=== PATIENT | male | born 1975 | race Caucasian/White ===

== ENCOUNTER 2021-09-07 15:51 | Emergency (ER) | payer BC, SELFPAY ==
--- NOTE | ~2021-09-07 | XR_ITS ---
EXAMINATION: [id number] EXAM DATE: 09/07/2021 16:22 INDICATION: Initial encounter following injury, with pain of the right ribs. TECHNIQUE: Frontal projection of the upper right ribs, frontal projection of the lower right ribs, ob lique projection of the right ribs, frontal chest x-ray(s) for interpretation. There is no prior [place] dy for comparison. FINDINGS: Suspicion of right 7th rib fracture anteriorly identified on the oblique projection. This f inding has been indicated, marked on the examination for review, clinical correlation. No other suzie picious findings. No confluent consolidation, pneumothorax or pleural effusion suspected. Cardiomedia stinal silhouette is normal. IMPRESSION: Probable acute nondisplaced right 7th rib fracture. Reviewed, dictated and finalized at location B.
[2021-09-07 16:02] VITALS: BP 125/75; PULSE 82; RESP 16; TEMP 37.3; O2SAT 97
--- NOTE | 2021-09-07 16:37 | ED.GENADULT ---
HPI - General Adult General Chief complaint: Unspecified Stated complaint: rib injury Time Seen by Provider: 09/07/21 16:38 Source: patient Mode of arrival: ambulatory Limitations: no limitations History of Present Illness HPI narrative: 46-year-old male presents with concern for right rib pain. 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 He reports pain worse in the last 2 days. Reports pain worsens when he moves in certain ways, takes deep breaths or coughs. He denies any shortness of breath. Denies bruising, open skin. complaint: Rib pain Related Data Home Medications Medication Instructions Recorded Confirmed No Home Medications 09/07/21 09/07/21 Allergies Allergy/AdvReac Type Severity Reaction Status Date / Time No Known Allergies Allergy Verified 09/07/21 16:07 Review of Systems Review of Systems: CONSTITUTIONAL: Denies malaise, chills, sweats, or fever CARDIOVASCULAR: Denies chest pain, palpitations, or edema. RESPIRATORY: Denies cough or dyspnea. GASTROINTESTINAL: Denies abdominal pain SKIN: Denies bruising, open skin MUSCULOSKELETAL: Reports right rib pain NEUROLOGIC: Denies numbness, weakness All systems reviewed & are unremarkable except as noted in HPI and below PMFSH Comments At time of signature, agree with nursing past medical, surgical, social and family history. There is no relevant family history pertinent to the presenting complaint Exam Narrative: GENERAL: Well-appearing, well-nourished, and in no acute distress. HEAD: Normocephalic, atraumatic. EYES: PERRLA, sclera clear ENT: Mucous membranes moist. NECK: Supple. CHEST: No respiratory distress. Clear to auscultation. No bony deformities, no asymmetry. Speaks in full sentences. HEART: Regular rate and rhythm. EXTREMITIES: Right upper extremity has grossly normal range of motion, normal strength and sensation. SKIN: Warm, dry, no visible rash, lacerations, abrasions, bruising. NEURO: Alert and oriented x3. PSYCH: Normal mood and affect Course Course Emergency Course: Patient is aware of diagnosis, understands and agrees to treatment plan. Anticipatory guidance given. Patient agrees to follow-up as directed and is aware of reasons to seek care at the emergency department. Portions of this record may have been created with voice recognition software Level of Care: Express Care Visit Vital Signs Vital signs: Vital Signs Temperature 99.1 F 09/07/21 16:02 Pulse Rate 82 09/07/21 16:02 Respiratory Rate 16 09/07/21 16:02 Blood Pressure 125/75 09/07/21 16:02 Pulse Oximetry 97 09/07/21 16:02 Temperature 99.1 F 09/07/21 16:02 Pulse Rate 82 09/07/21 16:02 Respiratory Rate 16 09/07/21 16:02 Blood Pressure 125/75 09/07/21 16:02 Pulse Oximetry 97 09/07/21 16:02 Reviewed. Medical Decision Making MDM Narrative Medical decision making narrative: Exam findings and imaging show no acute concerns or changes; patient is non-toxic appearing and is in no distress. Patient is appropriate for outpatient treatment and follow-up. Vital Signs Vital Signs: Vital Signs Temperature 99.1 F 09/07/21 16:02 Pulse Rate 82 09/07/21 16:02 Respiratory Rate 16 09/07/21 16:02 Blood Pressure 125/75 09/07/21 16:02 Pulse Oximetry 97 09/07/21 16:02 Temperature 99.1 F 09/07/21 16:02 Pulse Rate 82 09/07/21 16:02 Respiratory Rate 16 09/07/21 16:02 Blood Pressure 125/75 09/07/21 16:02 Pulse Oximetry 97 09/07/21 16:02 Critical Care Time Critical Care Time Critical Care Time: No Discharge Plan Discharge Clinical Impression: Fracture of rib Qualifiers: Encounter type: initial encounter Rib fracture type: single rib Fracture type: closed Laterality: right Qualified Code(s): S22.31XA - Fracture of one rib, right side, initial encounter for closed fracture Patient Disposition: Home, Self-Care Condition: Stable I
== END 2021-09-07 16:59 | disposition home or self-care (01) ==
PROVIDERS: Emergency Provider Nurse Practitioner; PCP Internal Medicine
DX: R07.81 Pleurodynia (principal); S22.31XA Fracture of one rib, right side, initial encounter for closed fracture; W20.8XXA Other cause of strike by thrown, projected or falling object, initial encounter
CPT/HCPCS: 71101; 99203; G0463

== ENCOUNTER 2024-07-11 13:49 | Emergency (ER) | payer BC, SELFPAY ==
[2024-07-11 13:56] VITALS: BP 130/71; PULSE 77; RESP 14; TEMP 36.9; O2SAT 100
--- NOTE | 2024-07-11 14:04 | ED.EYEPROB ---
HPI - Eye Problem General Chief complaint: Eye Problems Stated complaint: Eyes Time Seen by Provider: 07/11/24 14:05 Source: patient Mode of arrival: ambulatory Limitations: no limitations History of Present Illness HPI Narrative: 48 y/o male presented for c/o red itchy painful eyes. Says left eye is worse and started 4 days ago. Now spreading to right eye for 2 days. Endorses sand/gritty feeling in the eyes, and mucous to the lids in the morning. Denies injury or known FB. Using eye wash and cold water. denies photophobia, vision changes, headache, dizziness, n/v. smokes 1ppd chief complaint: eye pain Related Data Home Medications ?Medication ?Instructions ?Recorded ?Confirmed ?Last Taken ?Type No Home Medications 09/07/21 07/11/24 Unknown History Allergies Allergy/AdvReac Type Severity Reaction Status Date / Time No Known Allergies Allergy Verified 07/11/24 14:07 Review of Systems Review of Systems: CONSTITUTIONAL: Denies body aches, fever, chills EYES:Endorses redness, itching FB sensation to eyes Denies pain visual changes photophobia ENT: Denies rhinorrhea, congestion, sore throat, or otalgia. CARDIOVASCULAR: Denies chest pain, palpitations RESPIRATORY: Denies cough or dyspnea. GASTROINTESTINAL: Denies abdominal pain, nausea, vomiting, or diarrhea. SKIN: Denies rash, itching, or wounds. MUSCULOSKELETAL: Denies back pain, joint pain, or myalgia. NEUROLOGIC: Denies headache, numbness, tingling, or weakness. All systems reviewed & are unremarkable except as noted in HPI and below PMFSH Comments At time of signature, I have reviewed and agree with nursing past medical, surgical, social and family history unless otherwise noted. Please see nursing chart for further information. There is no relevant family history pertinent to the presenting complaint Exam Narrative: GENERAL: Well-appearing HEAD: Normocephalic, atraumatic. EYES: bilateral conjunctival injection, Left >right. No active purulent drainage. No eye lid swelling. PERRLA, EOMI. Lid eversion shows no FB. ENT: Mucous membranes pink and moist. No rhinorrhea. TMs normal bilaterally. Throat normal. Uvula midline. CHEST: Clear to auscultation. SKIN: Warm, dry, no rash. Normal skin turgor. NEURO: No focal deficits. Alert and oriented x3 PSYCH: Normal affect. Course Course Emergency Course: Patient is aware of diagnosis, understands and agrees to treatment plan. Anticipatory guidance given. Patient agrees to follow-up as directed and is aware of reasons to seek care at the emergency department. Portions of this record may have been created with voice recognition software Level of Care: Express Care Visit MDM - Eye Problem MDM Narrative Medical decision making narrative: Discussed physical exam findings c/w conjunctivitis. He declined Iniguez lamp exam. Advised supportive measures and signs/symptoms to go to the ER. Pt is appropriate for outpt treatment and f/u. Differential Diagnosis Differential diagnosis: Likely corneal abrasion, conjunctivitis, acute iritis and corneal ulcer Discharge Plan Discharge Clinical Impression: Bacterial conjunctivitis Patient Disposition: Home, Self-Care Condition: Stable Instructions: Antibiotic Form, Conjunctivitis (ED) Additional Instructions: Avoid touching or rubbing your eye. Use over the counter lubricating eye drops as needed for irritation Use a warm or cool washcloth on your eye for comfort Use eyedrops as directed - you are contagious for 24 hours after starting the antibiotic Practice good handwashing and hygiene to prevent spread of infection You may take Tylenol or ibuprofen for pain Follow-up with PCP or stress analyst if condition is not improving in 2 days. Go to the emergency room if you have severe pain or pressure behind your eye, difficulty seeing, or other severe symptoms [facility] [phone] [facility] [phone] [facility] [phone] [facility] [phone] Patient Language: Divehi Prescriptions: New polymyxin B sulf-trimethoprim 10,000 unit- 1 mg/mL drops 1 drp EACH EYE Q3H 7 Days Qty: 10 0RF Rx Instructions: while awake; do not exceed 6 doses in 24 hours No Action No Home Medications hydrocodone-acetaminophen 5-325 mg tablet 1 tablet PO Q6H PRN (Reason: pain) Qty: 20 0RF Follow-up/Referrals: PHYSICIAN,SECURITY DOOR INSTALLER [Primary Care Provider] -
--- OUTSIDE RECORDS SUMMARY | 2024-07-11 14:32 | XMS_ITS | Referral Summary ---
Author Organization [facility] [employer] Address [address] [place] [address] Care Team Providers Care Sales Agent [employer] Insurance Name Role Phone Unavailable Primary Care Provider Unavailabl e Source Comments [facility] [employer],non-owned Affiliates and Associated Physician Practices is amultiple site organization consisting of ambulatory clinics and hospital sitesin [place], [place], [place] and [place]. This disclosure is being madepursuant to the Care Everywhere program and may not contain all information available regarding this patient. Last updated 18.[facility] [employer] Allergies No known active allergies Medications * Be aware that medications may not be up to date on this document. Alwaysverify current medications with the patient. Medication Sig Dispensed Refills Start Date End Date Status acetaminophen (TYLENOL) 325 MG tablet Take 2 tablets by mouth every 4 hours as needed Maximum allowable Acetaminophen amount = 4 Grams (4000 mg) / 24 hours. 02/22/2019 Active docusate sodium (COLACE) 100 MG capsule Take 1 capsule by mouth once daily 30 capsule 02/23/2019 Active ondansetron, disintegrating, (ZOFRAN ODT) 4 MG tablet Take 1 tablet by mouth every 6 hours as needed for Nausea/Vomiting Allow tablet to dissolve on the tongue 20 tablet 02/22/2019 Active oxyCODONE-acetami nophen (PERCOCET) 10-325 MG tablet Take 1 tablet by mouth every 8 hours as needed 12 tablet 02/22/2019 Active Active Problems Problem Noted Date Diagnosed Date SBO (small bowel obstruction) 02/18/2019 Social History Tobacco Use Types Packs/Day Years Used Date Smoking Tobacco: Every Day Cigarettes 1 25.1 Started: 06/12/1999 Smokeless Tobacco: Never Tobacco Cessation:Ready to Q uit: No Alcohol Use Standard Drinks/Week Comments Yes 1 (1 standard drink = 0.6 oz pur e alcohol) AUDIT-C Answer Date Recorded Frequency of Alcohol Consumption Monthly or less 02/19/2019 Average Number of Drinks 1 or 2 019 Frequency of Binge Drinking Less than monthly Sex and Gender Information Value Date Recorded Sex Assigned at Not on file Gender Identity Not on file Sexual Orientation Not on file Last Filed Vital Signs Vital Sign Reading Time Taken Comments Blood Pressure 102/69 02/22/2019 4:27 AM CDT Pulse 75 02/22/2019 4:27 AM CDT Temperature 36.7 ??C (98 ??F) 02/22/2019 4:27 AM CDT Respiratory Rate 16 02/22/2019 4:27 AM CDT Oxygen Saturation 97% 02/22/2019 4:27 AM CDT Inhaled Oxygen Concentration - - Weight 69.8 kg (153 lb 14.4 oz) 02/18/2019 7:50 PM CDT Height 182.9 cm (6') 02/18/2019 7:50 PM CDT Body Mass Index 20.87 02/18/2019 7:50 PM CDT Functional Status Functional Status Response Date of Assess ment Is person deaf or have serious hearing difficult y? No 02/18/2019 Is person blind or have serious difficulty seein g? No 02/18/2019 Does person have serious dif ficulty walking/climbing stairs? No 02/18/2019 Does person have difficulty dressing/bathing? No 02/18/2019 Does person have difficulty doing errands alone? No 02/18/2019 Cognitive Status Response Date of Assessm ent Does person have difficulty concentrating/remembering/making decisions? No 02/18/2019 Plan of Treatment Not on file Advance Directives * Full Code (Latest Code Status on File) Date Activated Date Inactivated Comments 02/18/2019 9:09 PM 02/22/2019 1:57 PM
--- OUTSIDE RECORDS SUMMARY | 2024-07-11 14:32 | XMS_ITS | Patient Health Summary ---
Author Organization [facility] [employer] Address [address] [place] [address] Care Team Providers Care Geophysical E Logger Name Role Phone Unavailable Primary Care Provider Unavailabl e Note from [facility] [employer] [facility],non-owned Affiliates and Associated Physician Practices is amultiple site organization consisting of ambulatory clinics and hospital sitesin [place], [place], [place] and [place]. This disclosure is being madepursuant to the Care Everywhere program and may not contain all information available regarding this patient. Last updated 18.[facility] [employer] Allergies No known active allergies Medications * Be aware that medications may not be up to date on this document. Alwaysverify current medications with the patient. * acetaminophen (TYLENOL) 325 MG tablet(Started 02/22/2019) Take 2 tablets by mouth every 4 hours as needed Maximum allowable Acetaminophen amount = 4 Grams (4000 mg) / 24 hours. * docusate sodium (COLACE) 100 MG capsule(Started 02/23/2019) Take 1 capsule by mouth once daily * ondansetron, disintegrating, (ZOFRAN ODT) 4 MG tablet(Started 02/22/2019) Take 1 tablet by mouth every 6 hours as needed for Nausea/Vomiting Allow tablet to dissolve on the tongue * oxyCODONE-acetaminophen (PERCOCET) 10-325 MG tablet(Started 02/22/2019) Take 1 tablet by mouth every 8 hours as needed Active Problems Problem Noted Date Diagnosed Date [...] Mass Index 20.87 02/18/2019 7:50 PM CDT Procedures * CARDIAC RHYTHM STRIP ORDER(Performed 02/26/2019) * COMPREHENSIVE METABOLIC PANEL(Performed 02/21/2019) * CBC W AUTO DIFFERENTIAL(Performed 02/21/2019) * GLUCOSE - POINT OF CARE(Performed 02/20/2019) * COMPREHENSIVE METABOLIC PANEL(Performed 02/20/2019) * CBC W AUTO DIFFERENTIAL(Performed 02/20/2019) * PT EVAL AND TREAT(Performed 02/19/2019) * OT EVAL AND TREAT(Performed 02/19/2019) * COMPREHENSIVE METABOLIC PANEL(Performed 02/19/2019) * CBC W AUTO DIFFERENTIAL(Performed 02/19/2019) * XR ABDOMEN KUB(Performed 02/18/2019) Performed for SBO (small bowel obstruction) (HCC) Results * CARDIAC RHYTHM STRIP ORDER (02/26/2019 6:30 PM CDT) Narrative 02/26/2019 6:30 PM CDT Ordered by an unspecified provider. Scanned Document CARDIAC SERVICES ORD ERABLES * (ABNORMAL) CBC W AUTO DIFFERENTIAL (02/21/2019 4:44 AM CDT) Only the most recent of3 resultswithin the time period is included. [facility] WBC 7.8 4.4 - 10.7 x10E9/L 02/21/2019 5:16 AM CDT [facility] WBC Corrected 02/21/2019 5:16 AM CDT [facility] RBC 3.82 3.80 - 5.40 x10E12/L 02/21/2019 5:16 AM CDT [facility] Hemoglobin 12.8 12.0 - 17.6 gm/dL 02/21/2019 5:16 AM CDT [facility] Hematocrit 37.4 35.2 - 51.7 % 02/21/2019 5:16 AM CDT [facility] MCV 97.9 80.7 - 98.3 fl 02/21/2019 5:16 AM CDT [facility] MCH 33.5 26.7 - 34.0 pg 02/21/2019 5:16 AM CDT [facility] MCHC 34.2 30.8 - 35.9 gm/dL 02/21/2019 5:16 AM CDT [facility] Platelet Count 372 153 - 416 x10E9/L 02/21/2019 5:16 AM CDT [facility] RDW-CV 11.7(L) 12.1 - 14.9 % 02/21/2019 5:16 AM CDT [facility] MPV 9.7 9.4 - 12.9 fl 02/21/2019 5:16 AM CDT [facility] Neutrophils % 69.1 44.0 - 73.0 % 02/21/2019 5:16 AM CDT [facility] Lymphocytes % 18.9(L) 20.0 - 43.0 % 02/21/2019 5:16 AM CDT [facility] Monocytes % 9.2 5.0 - 13.0 % 02/21/2019 5:16 AM CDT [facility] Eosinophils % 2.0 0.0 - 6.0 % 02/21/2019 5:16 AM CDT [facility] Basophils % 0.4 0.0 - 2.0 % 02/21/2019 5:16 AM CDT [facility] Immature Granulocytes 0.4 0 - 1 % 02/21/2019 5:16 AM CDT [facility] Neutrophil Absolute 5.42 2.01 - 7.14 x10E9/L 02/21/2019 5:16 AM CDT [facility] Lymphocytes Absolute 1.48 1.07 - 3.94 x10E9/L 02/21/2019 5:16 AM CDT [facility] Monocytes Absolute 0.72 0.26 - 1.07 x10E9/L 02/21/2019 5:16 AM CDT [facility] Eosinophils Absolute 0.16 0 - 0.47 x10E9/L 02/21/2019 5:16 AM CDT [facility] Basophils Absolute 0.03 0 - 0.08 x10E9/L 02/21/2019 5:16 AM CDT [facility] Immature Granulocytes Absolute 0.03 0.00 - 0.06 x10E9/L 02/21/2019 5:16 AM CDT [facility] nRBC Auto 0 /100 WBC 02/21/2019 5:16 AM CDT [facility] Blood BLOOD SPECIMEN / Unknown Lab Venipuncture / Unknown 02/21/2019 4:44 AM CDT 02/21/2019 5:03 AM CDT Sherly Leavitt MD LAB - HEMATOLOGY OR DERABLES [facility] [address] [place] [address] * (ABNORMAL) COMPREHENSIVE METABOLIC PANEL (02/21/2019 4:44 AM CDT) Only the most recent of3 resultswithin the time period is included. Glucose 152(H) 74 - 106 mg/dL 02/21/2019 5:30 AM CDT [facility] Sodium 137 136 - 145 mmol/L 02/21/2019 5:30 AM CDT [facility] Potassium 4.1 3.5 - 5.1 mmol/L 02/21/2019 5:30 AM CDT [facility] Chloride 102 98 - 107 mmol/L 02/21/2019 5:30 AM CDT [facility] CO2 28 23 - 31 mmol/L 02/21/2019 5:30 AM CDT [facility] Calcium 8.5 8.4 - 10.2 mg/dL 02/21/2019 5:30 AM CDT [facility] Anion Gap 7(L) 8 - 16 mmol/L 02/21/2019 5:30 AM CDT [facility] BUN 8(L) 8.9 - 20.6 mg/dL 02/21/2019 5:30 AM CDT [facility] Creatinine 0.73 0.73 - 1.18 mg/dL 02/21/2019 5:30 AM CDT [facility] Alkaline Phosphatase 32(L) 40 - 150 U/L 02/21/2019 5:30 AM CDT [facility] ALT 37 13 - 61 U/L 02/21/2019 5:30 AM CDT [facility] AST 23 5 - 34 U/L 02/21/2019 5:30 AM T [facility] Protein Total 6.4 6.4 - 8.3 gm/dL 02/21/2019 5:30 AM CDT [facility] Albumin 3.6 3.5 - 5.2 gm/dL 02/21/2019 5:30 AM T [facility] Bilirubin Total 0.3 0.2 - 1.2 mg/dL 02/21/2019 5:30 AM T [facility] eGFR by MDRD >60 >60 mL/min/1.7 3m2 02/21/2019 5:30 AM T [facility] eGFR by MDRD >60 >60 mL/min/1.7 3m2 02/21/2019 5:30 AM CDT [facility] Blood BLOOD SPECIMEN / Unknown Lab Venipuncture / Unknown 02/21/2019 4:44 AM CDT 02/21/2019 5:03 AM CDT Sherly Leavitt MD LAB - CHEMISTRY ORD ERABLES [facility] [address] [place] [address] * GLUCOSE - POINT OF CARE (02/20/2019 6:54 AM CDT) Glucose WB/POC 78 70 - 106 mg/dL 02/20/2019 8:03 AM CDT [facility] Specimen Type Arterial/C apillary 02/20/2019 8:03 AM CDT [facility] Blood BLOOD SPECIMEN / Unknown 02/20/2019 6:54 AM CDT 02/20/2019 8:03 AM CDT Sherly Leavitt MD LAB - POINT OF CARE ORDERABLES [facility] [address] [place], [place] [id number] * XR ABDOMEN KUB (02/18/2019 8:52 PM CDT) Anatomical Region Laterality Modality Abdomen Radiographic Katharine ging 02/18/2019 8:53 PM CDT Narrative 02/18/2019 8:54 PM CDT KUB at 2035 hours HISTORY: Nasogastric tube placement A nasogastric tube superimposes the stomach. Multiple distended small bowel loops are present disproportionate to colonic size. There is contrast within the colon possibly due to prior CT or barium study. Reading Radiologist: Dimitri Ceballos MD on 02/18/2019 at 8:54 PM Procedure Note Dimitri Ceballos MD - 02/18/2019 KUB at 2035 hours HISTORY: Nasogastric tube placement A nasogastric tube superimposes the stomach. Multiple distended small bowel loops are present disproportionate to colonic size. There is contrast within the colon possibly due to prior CT or barium study. Reading Radiologist: Dimitri Ceballos MD on 02/18/2019 at 8:54 PM Mary Rosario APRN-BUSINESS BANKING SALES ASSISTANT DIAGNOSTIC IMAGING ORDERABLES
--- OUTSIDE RECORDS SUMMARY | 2024-07-11 14:32 | XMS_ITS | Clinical Summary ---
Author Organization [facility] [employer] Address [facility] [place] [address] Care Team Providers Care Director Telehealth Name Role Phone Unavailable Primary Care Provider Unavailabl e Source Comments [facility] [employer]non-owned Affiliates and Associated Physician Practices is amultiple site organization consisting of ambulatory clinics and hospital sitesin [place], [place], [place] and [place]. This disclosure is being madepursuant to the Care Everywhere program and may not contain all information available regarding this patient. Last updated 18.[facility] [employer] Allergies No known active allergies Medications * [...] Mass Index 20.87 02/18/2019 7:50 PM CDT Plan of Treatment Health Maintenance Due Date Last Done Comments COLOGUARD (AGES 45-75) - COL ON CA SCREENING 1975 COLON MONITORING 1975 COLONOSCOPY - COLON CA SCREENING 1975 CT COLONOGRAPHY - COLON CA SCREENING 1975 Colorectal Cancer Screening 1975 FIT - COLON CA SCREENING 1975 FLEX SIG - COLON CA SCREENING 1975 LIPID TESTING 1975 HIV SCREENING 1990 HEPATITIS C SCREENING 07/20/1993 DTAP/TDAP/TD VACCINES (1 - Tdap) 1994 HEPATITIS B VACCINE (1 of 3 - 19+ 3-dose series) 1994 PNEUMOCOCCAL VACCINE (1 of 2 - PCV) 1994 COVID-19 VACCINE ( - 2023-2 5 season) 2024 INFLUENZA VACCINE (#1) 2024 DEPRESSION SCREENING 06/12/2024 ZOSTER VACCINE (1 of 2) 2025 HIB VACCINE Aged Out No longer eligi ble based on patient's age to complete this topic HPV VACCINE Aged Out No longer eligi ble based on patient's age to complete this topic MENINGOCOCCAL (Group B) VACCINE Aged Out No longer eligible based on patient's age to complete this topic MENINGOCOCCAL VACCINE Aged Out No jasson hernando eligible based on patient's age to complete this topic Advance Directives * Full Code (Latest Code Status on File) Date Activated Date Inactivated Comments 02/18/2019 9:09 PM 02/22/2019 1:57 PM
--- OUTSIDE RECORDS SUMMARY | 2024-07-11 14:32 | XMS_ITS | Clinical Summary ---
Author Organization [facility] Address [address] [place] [address] Phone Care Team Providers Care Sales Clerk Name Role Phone Unavailable Primary Care Provider Unavailabl e Allergies No known active allergies Medications acetaminophen (TYLENOL) 325 MG Tablet Take 650 mg by mouth. 02/22/2019 Active ciprofloxacin (CIPRO) 500 MG Tablet TAKE 1 TABLET BY MOUTH TWICE DAILY FOR 5 DAYS 0 02/22/2019 Active docusate sodium (COLACE) 100 MG Capsule Take 100 mg by mouth. 02/23/2019 Active metroNIDAZOLE (FLAGYL) 500 MG Tablet TAKE 1 TABLET BY MOUTH EVERY 8 HOURS FOR 5 DAYS 0 02/22/2019 Active ondansetron (ZOFRAN-ODT) 4 MG TABLET DISPERSIBLE Take 4 mg by mouth. 02/22/2019 Active oxyCODONE-Acetam inophen (PERCOCET) 10-325 MG Tablet Take 1 Tab by mouth. 02/22/2019 Active Active Problems Problem Noted Date Diagnosed Date Small bowel obstruction 02/18/2019 Hypokalemia 02/18/2019 Tobacco dependence 02/18/2019 Substance abuse 02/18/2019 Immunizations Immunization Administration Dates Next Due Pneumococcal Vaccine Adult - 23 Valent 02/13/2019(),02/11/2019(Deferred: - patient does not want to take today, but wants to take it in the morning) Family History Medical History Relation Name Comments Cancer Mother unknown cancer Relation Name Status Comments Father Mother Social History Tobacco Use Types Packs/Day Years Used Date Smoking Tobacco: Every Day Cigarettes 1 19.4 Started: 02/12/2005 Smokeless Tobacco: Never Tobacco Cessation:Ready to Q uit: No; Counseling Given: Yes Alcohol Use Standard Drinks/Week Comments Yes 0 (1 standard drink = 0.6 oz pur e alcohol) 3-4 beers a day AUDIT-C Answer Date Recorded Frequency of Alcohol Consumption 4 or more times a week 02/12/2019 Average Number of Drinks 3 or 4 019 Frequency of Binge Drinking Not on file 08/2018 PHQ-2 Answer Date Recorded PHQ-2 Score 0 03/14/2019 Sexually Active Control Partners Comments Yes Female Sex and Gender Information Value Date Recorded Sex Assigned at Not on file Legal Sex Male 11:29 PM CDT Gender Identity Not on file Sexual Orientation Not on file Last Filed Vital Signs Vital Sign Reading Time Taken Comments Blood Pressure 120/70 03/14/2019 10:46 AM CDT Pulse 66 03/14/2019 10:46 AM CDT Temperature 36.9 ??C (98.4 ??F) 03/14/2019 10:46 AM C DT Respiratory Rate 16 03/14/2019 10:46 AM CDT Oxygen Saturation 98% 03/14/2019 10:46 AM CDT Inhaled Oxygen Concentration - - Weight 67.7 kg (149 lb 4.8 oz) 03/14/2019 10:46 AM CDT Height 182.9 cm (6') 03/14/2019 10:46 AM CDT Body Mass Index 20.25 03/14/2019 10:46 AM CDT Plan of Treatment Health Maintenance Due Date Last Done Comments Hepatitis C Virus (HCV) Screening 1975 TdaP Immunization 1975 Hepatitis B Immunization (1 of 3 - 19+ 3-dose series) 1994 Influenza Immunization (#1) 2024 SARS-COV-2 Immunization (2023- season) 2024 05/11/2021, 11/10/2020, 09/28/2020 Colonoscopy 02/14/2029 02/14/2019 Colorectal Cancer Screening 02/14/2029 Respiratory Syncytial Virus (RSV) Immunization (Adult) (1 - 1-dose 75+ series) 2050 02/14/2019 Meningococcal Immunization (ACWY) Aged Out No longer eligible b ased on patient's age to complete this topic Pneumococcal Immunization Combined Aged Out No longer eligible b ased on patient's age to complete this topic Rotavirus Immunization Aged Out No lo nger eligible based on patient's age to complete this topic Insurance [place] [id number] Advance Directives * Full Code (Latest Code Status on File) Date Activated Date Inactivated Comments 02/10/2019 5:49 PM 02/18/2019 8:09 PM CPR-Full Treat ment: FULL ARREST: Attempt Resuscitation/CPR wit intubation and mechanical ventilation. PRE-ARREST: Use entire range of life support measures to stabilize the patient.
== END 2024-07-11 14:16 | disposition home or self-care (01) ==
PROVIDERS: Emergency Provider Nurse Practitioner Family
DX: B99.9 Unspecified infectious disease (principal); H10.89 Other conjunctivitis
CPT/HCPCS: 99213; G0463

== ENCOUNTER 2024-12-06 19:46 | Emergency (ER) | payer BC, SELFPAY ==
[2024-12-06 19:47] VITALS: BP 119/86; PULSE 60; RESP 16; TEMP 36.6; O2SAT 100
--- NOTE | 2024-12-06 19:50 | ED.DENTAL ---
HPI - Dental/Oral General Chief complaint: Dental/Oral Stated complaint: Tooth Pain Time Seen by Provider: 12/06/24 19:50 Source: patient Mode of arrival: ambulatory Limitations: no limitations History of Present Illness HPI Narrative: 49-year-old male presents with right lower dental pain for 2-3 days. Reports history of dental abscess. Was weeding in ER for over an hour. States just needs some antibiotics . Does not have a dentist. Afebrile. All systems reviewed and negative except as noted above. Related Data Allergies Allergy/AdvReac Type Severity Reaction Status Date / Time No Known Allergies Allergy Verified 12/06/24 19:55 Review of Systems Review of Systems: CONSTITUTIONAL: Denies fever, chills, or sweats. EYES: Denies visual changes, redness, or discharge. ENT: Denies rhinorrhea, congestion, sore throat, or otalgia. Reports right lower dental pain. CARDIOVASCULAR: Denies chest pain, palpitations, or edema. RESPIRATORY: Denies cough or dyspnea. GASTROINTESTINAL: Denies abdominal pain, nausea, vomiting, or diarrhea. GENITOURINARY: Denies dysuria or hematuria. SKIN: Denies rash or itching. MUSCULOSKELETAL: Denies back pain, joint pain, or myalgia. NEUROLOGIC: Denies headache, numbness, or weakness. PSYCHIATRIC: Denies anxiety or depression. All other systems reviewed are negative, except as documented in HPI. PMFSH Comments At time of signature, agree with nursing past medical, surgical, social and family history. There is no relevant family history pertinent to the presenting complaint. Exam Narrative: GENERAL: This is a well-nourished, well-developed patient, in no apparent distress. HEAD: normocephalic, atraumatic. EYES: PERRL. Sclera clear/white. Vision is grossly intact. EARS: External ears normal NOSE: External nose normal MOUTH: Dental abscess to right lower gums. Patient has multiple broken, decayed/ missing teeth NECK: Neck supple, non-tender without lymphadenopathy, masses or thyromegaly. CARDIOVASCULAR: Regular rate and rhythm without murmurs, gallops, or rubs. RESPIRATORY: Clear to auscultation. Breath sounds equal bilaterally. No wheezes, rales, or rhonchi. SKIN: warm, Dry, intact with no suspicious lesions or rash, good texture and turgor. NEURO: awake, alert, and oriented to person, place and time. There were no obvious focal neurologic abnormalities. EXTREMITIES: No joint tenderness, effusion, or edema noted. Course Course Level of Care: Express Care Visit Vital Signs Vital signs: reviewed MDM - Dental/Oral MDM Narrative Medical decision making narrative: right lower dental abscess. Will treat with clindamycin. Recommend he go to ER for I&D but states he wishes there and weighs too long, does not want to go back. States last time he was at ER he had dental abscess opened and drained and they did note to right and he had do it by himself at home. Risks were discussed such as worsening infection, sepsis, recurrent abscess. Patient voices understanding. Discharge Plan Discharge Clinical Impression: Dental abscess Patient Disposition: Home Condition: Stable Instructions: Antibiotic Form, Dental Abscess (ED) Additional Instructions: Take antibiotic as prescribed until gone. Take ibuprofen or Tylenol every 6-8 hours as needed for pain. Follow-up with dentist at next available appointment. For any worsening of symptoms go to the ER. Patient Language: Setswana Prescriptions: New clindamycin HCl 300 mg capsule 300 mg PO QID 10 Days Qty: 40 0RF Follow-up/Referrals: PHYSICIAN,CHEMICAL PLANT TECHNICAL DIRECTOR [Primary Care Provider] - Time of Disposition: 19:58
== END 2024-12-06 20:00 | disposition home or self-care (01) ==
PROVIDERS: Emergency Provider Nurse Practitioner Family
DX: K04.7 Periapical abscess without sinus (principal)
CPT/HCPCS: 99213; G0463